=== PATIENT | female | born 1980 | race African-American/Black ===

== ENCOUNTER 2018-02-01 09:48 | Emergency (ER) | payer OTHER ==
[~2018-02-01] VITALS: Ht 161.3 cm; Wt 47.5 kg
[~2018-02-01 09:48] MED LIST: NOHOMEMEDS
[2018-02-01 11:04] LABS: APPEARANCE CLEAR ((CLEAR)); BILIRUBIN NEGATIVE; BLOOD MODERATE; COLOR YELLOW ((YELLOW)); GLUCOSE (STRIP) NEGATIVE; KETONES NEGATIVE; LEUKOCYTES NEGATIVE; NITRITE NEGATIVE; PROTEIN (STRIP) NEGATIVE; SPECIFIC GRAVITY 1.025 (1.000-1.030)
[2018-02-01 11:08] LABS: BASOPHIL (%) 0.6 % (0-1); BASOPHIL COUNT 0.1 K/uL (0-0.1); EOSINOPHIL (%) 1.1 % (0-5); EOSINOPHIL COUNT 0.2 K/uL (0-0.3); HEMATOCRIT 41.7 % (36.0-46.0); HEMOGLOBIN 13.9 G/DL (11.9-15.5); IMMATURE GRANULOCYTE (%) 0.3 % (0.0-0.7); LYMPHOCYTE (%) 16.2 % (15-42); LYMPHOCYTE COUNT 2.2 K/uL (1.0-2.8); MCH 30.8 PG (29.0-34.0); MCHC 33.3 G/DL (30.0-36.0); MCV 92.3 FL (83-99); MONOCYTE (%) 5.9 % (3-12); MONOCYTE COUNT 0.8 K/uL (0-0.8); NEUTROPHIL (%) 75.9 % (45-76); NEUTROPHIL COUNT 10.5 K/uL (1.8-6.4); PLATELET COUNT 310 K/uL (156-360); RBC DIS.WIDTH-CV 12.3 % (11.8-14.6); RBC DIS.WIDTH-SD 41.7 % (39-53); RED BLOOD COUNT 4.52 M/uL (3.80-5.20); WHITE BLOOD COUNT 13.8 K/uL (4.1-10.2)
[2018-02-01 11:12] LABS: BACTERIA RARE /HPF; EPITHELIAL CELLS 1+ /HPF; MUCUS 4+ /LPF; UCUL ADDED? YES
[2018-02-01 11:18] LABS: ALBUMIN 4.6 g/dL (3.2-4.8); CHLORIDE 106 mEq/L (99-109); POTASSIUM 3.9 mEq/L (3.7-5.4); SODIUM 138 mEq/L (136-147)
[2018-02-01 11:21] LABS: GLUCOSE 85 mg/dL (70-99); TOTAL PROTEIN 7.9 g/dL (6.4-8.3)
[2018-02-01 11:23] LABS: TOTAL BILIRUBIN 1.7 mg/dL (0.0-1.0)
[2018-02-01 11:24] LABS: ALKALINE PHOSPHATASE 82 IU/L (3-129); CREATININE 0.8 mg/dL (0.6-1.3); GFR ESTIMATE (CALCULATED) > 59 mL/min/
[2018-02-01 11:25] LABS: UREA NITROGEN (BUN) 9 mg/dL (9-23)
[2018-02-01 11:26] LABS: AST (GOT) 16 IU/L (2-34)
[2018-02-01 11:27] LABS: ALT (GPT) 8 IU/L (3-49)
[2018-02-01 11:34] LABS: QUANTITATIVE HCG < 4.0 MIU/ML
[2018-02-01] MEDS ORDERED: ROXICODONE5 MG PO (13:26)
[2018-02-01] MEDS ORDERED: ZOFRAN4 MG PO (13:26)
[2018-02-01 13:29] LABS: LIPASE 16 U/L (1.0-51.0)
[2018-02-01 14:08] VITALS: BP 92/54
== END 2018-02-01 14:13 | disposition home or self-care (01) ==
LOC: EME 09:48
PROVIDERS: Emergency Medicine
DX: K52.9 Noninfective gastroenteritis and colitis, unspecified (principal); F32.9 Major depressive disorder, single episode, unspecified; F17.200 Nicotine dependence, unspecified, uncomplicated
CPT/HCPCS: 74177; 80053; 81003; 83605; 83690; 84702; 85025; 87086; 99281; 99285; J2270; J2405; J7030